=== PATIENT | female | born 1990 | race Caucasian/White ===

== ENCOUNTER 2018-11-15 10:44 | Outpatient (CLI) | payer MEDICAID | END 2018-11-15 10:45 | disposition critical access hospital (66) | LOC: EMS 10:44 | PROVIDERS: ATTEND Surgery | DX: R10.9 Unspecified abdominal pain (principal); R11.2 Nausea with vomiting, unspecified; R19.7 Diarrhea, unspecified | CPT/HCPCS: A0425; A0427 ==

== ENCOUNTER 2018-11-15 11:02 | Emergency (ER) | payer MEDICAID ==
[2018-11-15] MEDS ORDERED: SODIUM CHLORIDE 0.9% 1,000 ML IV ONE (11:13)
--- NOTE | 2018-11-15 11:14 | ED Physician Documentation ---
History of Present Illness - Stated complaint Stated Complaint: ABD PX - Chief complaint Chief Complaint: Abd Pain - History obtained from History obtained from: Patient - History of Present Illness Timing: Prior to arrival - Additonal information Additional information: Patient is a previously healthy 28-year-old female presenting with sudden onset of right lower quadrant pain associate with nausea, vomiting, and diarrhea at about 9:51 AM today. Patient denies any new foods, exposures, medications or symptoms preceding this event. Patient denies back pain, fever, chills, vaginal bleeding or pain, or other concerns. Patient arrived by ambulance and had received nausea and pain medication in route and was much more comfortable. No other improving or worsening factors noted. Review of Systems Constitutional: denies: Fever, Chills GI: reports: Abdominal Pain, Nausea, Vomiting, Diarrhea PD PAST MEDICAL HISTORY - Past Medical History Past Medical History: No - Past Surgical History Past Surgical History: No - Present Medications Home Medications: Ambulatory Orders Medication Instructions Recorded Confirmed Hydrocodone/Acetaminophen 1 - 2 each PO Q6H PRN #14 tablet 11/15/18 [Hydrocodon-Acetaminophen 5-325] Ondansetron Odt [Zofran] 4 mg TL Q6H PRN #10 tablet 11/15/18 Tamsulosin HCl [Flomax] 0.4 mg PO DAILY #14 cap.er.24h 11/15/18 - Allergies Allergies/Adverse Reactions: Allergies Allergy/AdvReac Type Severity Reaction Status Date / Time nortriptyline Allergy Hives Verified 11/15/18 11:07 sulfamethoxazole Allergy Hives Verified 11/15/18 11:08 [From ] trimethoprim [From ] Allergy Hives Verified 11/15/18 11:08 PD ED PE NORMAL - Vitals Vital signs reviewed: Yes - General General: Alert and oriented X 3, No acute distress, Well developed/nourished - HEENT HEENT: Atraumatic, Moist mucous membranes - Cardiac Cardiac: RRR, No murmur - Respiratory Respiratory: No respiratory distress, Clear bilaterally - Abdomen Abdomen: Soft, Non distended. No: Non tender (RLQ and periumbilical tenderness, positive McBurney's point) - Derm Derm: Normal color, Warm and dry, No rash - Extremities Extremities: No deformity, No tenderness to palpate - Neuro Neuro: Alert and oriented X 3, No motor deficit, No sensory deficit - Psych Psych: Normal mood, Normal affect Results - Vitals Vitals: Vital Signs - 24 hr 11/15/18 11/15/18 11:03 13:26 Temperature 36.5 C 36.5 C Heart Rate 56 L 54 L Respiratory 16 16 Rate Blood Pressure 117/69 123/73 O2 Saturation 98 99 Oxygen O2 Source Room air - Labs Labs: Laboratory Tests 11/15/18 11/15/18 11/15/18 11:39 11:39 11:39 WBC 12.6 H RBC 4.32 Hgb 12.6 Hct 39.2 MCV 90.7 MCH 29.2 MCHC 32.1 RDW 12.5 Plt Count 224 MPV 10.0 Neut # (Auto) 8.9 H Lymph # (Auto) 2.3 Stanley # (Auto) 1.0 Eos # (Auto) 0.2 Baso # (Auto) 0.1 Absolute Nucleated RBC 0.00 Nucleated RBC % 0.0 Sodium 139 Potassium 3.5 Chloride 108 Carbon Dioxide 20 L Anion Gap 11.0 BUN 13 Creatinine 0.8 Estimated GFR (MDRD) 86 L Glucose 126 H Lactic Acid 1.7 Calcium 8.6 Total Bilirubin 0.5 AST 14 ALT 10 Alkaline Phosphatase 30 L Total Protein 7.3 Albumin 4.0 Globulin 3.3 Albumin/Globulin Ratio 1.2 Lipase 30 Urine Color Urine Clarity Urine pH Ur Specific [place] Urine Protein Urine Glucose (UA) Urine Ketones Urine Occult Blood Urine Nitrite Urine Bilirubin Urine Urobilinogen Ur Leukocyte Esterase Urine RBC Urine WBC Ur Squamous Epith Cells Urine Bacteria Ur Microscopic Review Urine Culture Comments Urine HCG, Qual 11/15/18 11:40 WBC RBC Hgb Hct MCV MCH MCHC RDW Plt Count MPV Neut # (Auto) Lymph # (Auto) Stanley # (Auto) Eos # (Auto) Baso # (Auto) Absolute Nucleated RBC Nucleated RBC % Sodium Potassium Chloride Carbon Dioxide Anion Gap BUN Creatinine Estimated GFR (MDRD) Glucose Lactic Acid Calcium Total Bilirubin AST ALT Alkaline Phosphatase Total Protein Albumin Globulin Albumin/Globulin Ratio Lipase Urine Color YELLOW Urine Clarity CLOUDY Urine pH 6.0 Ur Specific [place] 1.020 Urine Protein NEGATIVE Urine Glucose (UA) NEGATIVE Urine Ketones NEGATIVE Urine Occult Blood LARGE H Urine Nitrite NEGATIVE Urine Bilirubin NEGATIVE Urine Urobilinogen 0.2 (NORMAL) Ur Leukocyte Esterase NEGATIVE Urine RBC 6-10 H Urine WBC 0-3 Ur Squamous Epith Cells RARE Squamous Urine Bacteria None Seen Ur Microscopic Review INDICATED Urine Culture Comments NOT INDICATED Urine HCG, Qual NEGATIVE PD MEDICAL DECISION MAKING - ED course Complexity details: reviewed results, re-evaluated patient, considered differential, d/w patient, d/w family ED course: Patient presenting with right lower quadrant and periumbilical abdominal discomfort. Do have concern for possible appendicitis, as well as ovarian pathology, although patient denies any vaginal complaints. Do feel that ovarian abscess, torsion, or other infections are less likely. Also have lower suspicion for gallbladder disease, pancreatitis, small bowel obstruction, AAA, renal disease, UTI based on symptoms and location of discomfort. Patient had received several doses of fentanyl, as well as Zofran prior to arrival. Patient continued on IV fluids, pain medications, nausea medications. Screening lab work and urinalysis returned relatively unremarkable. However, patient's CAT scan indicated right-sided 5 mm kidney stone. Upon discussion with patient, patient then admits to history of kidney stones. Discussed use of medications for home including Zofran, [place], Flomax, as well as primary care and urology follow-up. Patient and family voiced understanding and are comfortable with discharge plan. Departure - Departure Disposition: Home, Self Care Clinical Impression: Nephrolithiasis Condition: Good Instructions: ED Stone Renal W Colic Follow-Up: your,doctor [Other] - Within 3 Days Prescriptions: Hydrocodone/Acetaminophen [Hydrocodon-Acetaminophen 5-325] 1 - 2 each PO Q6H PRN #14 tablet PRN Reason: pain Ondansetron Odt [Zofran] 4 mg TL Q6H PRN #10 tablet PRN Reason: Nausea / Vomiting Tamsulosin HCl [Flomax] 0.4 mg PO DAILY #14 cap.er.24h Comments: Please take [place], Zofran, and Flomax as prescribed for pain relief, nausea relief, and passing a kidney stone, respectively. If taking [place], do not combine with additional Tylenol, alcohol, or driving. If taking [place], recommend use of stool softener or laxative to avoid constipation. If not taking [place], may use ibuprofen/Tylenol. Recommend hydration with Powerade/Gatorade and advancing diet as tolerated. Follow-up with primary care physician next 2 to 3 days. If stone does not pass, may require follow-up with urology. Return to ED sooner if experience worsening symptoms or have other concerns.
[2018-11-15] MEDS ORDERED: HYDROmorphone 1 MG/ML CARPUJECT IVP SCH (11:26)
[2018-11-15 11:46] LABS: BASOPHILS # (AUTO) 0.1 10^3/uL (0.0-0.1); BASOPHILS % (AUTO) 0.6 %; EOSINOPHILS # (AUTO) 0.2 10^3/uL (0.0-0.7); EOSINOPHILS % (AUTO) 1.6 %; HGB - HEMOGLOBIN 12.6 g/dL (12.0-16.0); LYMPHOCYTES # (AUTO) 2.3 10^3/uL (1.5-3.5); LYMPHOCYTES % (AUTO) 17.9 %; MEAN CORPUSCULAR HEMOGLOBIN 29.2 pg (27.0-31.0); MEAN CORPUSCULAR HGB CONC 32.1 g/dL (32.0-36.0); MEAN CORPUSCULAR VOLUME 90.7 fL (81.0-99.0); MONOCYTES % (AUTO) 8.3 %; NEUTROPHILS # (AUTO) 8.9 10^3/uL (1.5-6.6); NEUTROPHILS % (AUTO) 70.9 %; PLT - PLATELET COUNT 224 10^3/uL (130-450); RED BLOOD COUNT 4.32 10^6/uL (4.20-5.40); RED CELL DISTRIBUTION WIDTH 12.5 % (12.0-15.0); WHITE BLOOD COUNT 12.6 x10^3/uL (4.8-10.8)
[2018-11-15 11:51] LABS: BILIRUBIN,URINE NEGATIVE (NEGATIVE); GLUCOSE, URINE (UA) NEGATIVE (NEGATIVE); KETONES,URINE (UA) NEGATIVE (NEGATIVE); LEUKOCYTE ESTERASE, URINE NEGATIVE (NEGATIVE); NITRITE,URINE NEGATIVE (NEGATIVE); OCCULT BLOOD,URINE LARGE (NEGATIVE); PROTEIN,URINE NEGATIVE (NEGATIVE); UROBILINOGEN,URINE 0.2 (NORMAL) E.U./dL (NORMAL)
[2018-11-15 12:00] LABS: ALBUMIN/GLOBULIN RATIO 1.2 (1.0-2.2); BILIRUBIN,TOTAL 0.5 mg/dL (0.2-1.0); CALCIUM 8.6 mg/dL (8.5-10.3); CREATININE 0.8 mg/dL (0.4-1.0); TOTAL PROTEIN 7.3 g/dL (6.7-8.2)
[2018-11-15 12:10] LABS: BACTERIA,URINE None Seen /HPF (None Seen); CLARITY,URINE CLOUDY (CLEAR); HCG UR QUAL NEGATIVE; SQUAMOUS EPITHELIAL CELL,UR RARE Squamous (<= Few)
[2018-11-15] MEDS ORDERED: ONDANSETRON 4 MG/2 ML VIAL IVP STA (12:17)
[2018-11-15] MEDS ORDERED: IOVERSOL 320 100 ML VIAL IVP ONE ×2 (12:56→13:50)
[2018-11-15] MEDS ORDERED: HYDROmorphone 1 MG/ML CARPUJECT IVP STA (13:13)
--- NOTE | 2018-11-15 13:23 | CT Report ---
Reason: RLQ pain with nausea, vomiting Procedure Date: 11/15/2018 Accession Number: [id number] / [id number] Procedure: CT - Abdomen/Pelvis W CPT Code: FULL RESULT: EXAM: CT ABDOMEN AND PELVIS EXAM DATE: 11/15/2018 01:09 PM. CLINICAL HISTORY: Right lower quadrant pain with nausea, vomiting. COMPARISONS: None. TECHNIQUE: Routine helical CT imaging was performed through the abdomen and pelvis. IV contrast: 90 mL Optiray 320. Enteric contrast: No. Reconstructions: Coronal and sagittal. In accordance with CT protocol optimization, one or more of the following dose reduction techniques were utilized for this exam: automated exposure control, adjustment of mA and/or KV based on patient size, or use of iterative reconstructive technique. FINDINGS: Lung Bases: Unremarkable. Liver: Normal. No masses. Gallbladder/Bile Ducts: Unremarkable. Spleen: There is a nonspecific heterogeneous hypodense splenic lesion peripherally which measures at least 2.8 x 1.2 cm, see image 22 series 3. Pancreas: Normal. Adrenal Glands: Normal. Kidneys: There is moderate right hydroureteronephrosis with a 5 mm obstructing distal calculus at the right ureterovesical junction. Left genitourinary system is unremarkable. Peritoneal Cavity/Bowel: There are prominent lymph nodes throughout the mesentery which do not meet size criteria. No free fluid, free air or bowel obstruction. The appendix is well visualized and normal. Pelvic Organs: Aside from the genitourinary finding, the bladder and remaining pelvic organs are within normal limits. Vasculature: No aneurysms or other significant abnormality. Bones: No significant abnormality. Other: None. IMPRESSION: Right ureterovesical junction calculus. Indeterminate splenic lesion as described. [facility] The call report notification system was initiated by Dr. Angus Haas at 01:21 PM on 11/15/2018. ADDENDUM: 11/15/18 14:23 The above call report findings were discussed with Sharifa Elliott by Dr. Angus Haas at 1:25 PM on 11/15/2018.
[2018-11-15] MEDS ORDERED: KETOROLAC 30 MG/ML VIAL IVP STA (13:30)
[2018-11-15 14:05] VITALS: BP 123/77
== END 2018-11-15 14:04 | disposition home or self-care (01) ==
LOC: ED 11:02
DX: N20.1 Calculus of ureter (principal); D73.9 Disease of spleen, unspecified
CPT/HCPCS: 36415; 74177; 80053; 81001; 81025; 83605; 83690; 85025; 96374; 96375; 96376; 99283; J1170; Q9967; 81003; 87086